=== PATIENT | male | born 1955 | race Caucasian/White ===

== ENCOUNTER 2016-10-11 22:51 | Emergency (ER) | payer BC ==
[2016-10-11 22:19] LABS: INFLUENZA A POS (NEG); INFLUENZA B NEG (NEG)
[~2016-10-11 22:51] MED LIST: ASPIRIN PO; ASPIRINEC PO; COLCHICINE PO; COZAAR100 MG PO; DIOVAN PO; DIOVAN/HCT; JANUMET 50-1,1 UDTAB PO; LEVOTHYROXINE75 MCG PO; LISINOPRIL PO; LODINE XL PO; LOPRESSOR PO; LORTAB 7.5-5001 TAB PO; MEDROL PO; MULTI-VITAMIN1 TAB PO; WELLBUTRIN PO; ZOLOFT100 MG PO; ZYLOPRIM100 MG PO
== END 2016-10-11 23:21 | disposition home or self-care (01) ==
LOC: SED 22:51
PROVIDERS: Emergency Medicine
DX: J10.1 Influenza due to other identified influenza virus with other respiratory manifestations (principal); J98.01 Acute bronchospasm; E11.9 Type 2 diabetes mellitus without complications; F32.9 Major depressive disorder, single episode, unspecified; F17.210 Nicotine dependence, cigarettes, uncomplicated
CPT/HCPCS: 87804; 99283

== ENCOUNTER → 2017-03-12 | Outpatient (CLI) | payer BC ==
--- NOTE | ~2017-03-12 | ST ---
Unit #: [id number] #: [id number] Patient: ELEUTERIO HAM [id number] [address] [address] [id number] MR#: [id number] NAME: ELEUTERIO HAM : 1955 SEX: M STUDY DATE/TIME: 03/13/2017 UNIT: [facility] ROOM: STUDY DESCRIPTION: Comb. stress nuclear and ECG Attending Physician: Ham Chadwick M.D. Referring Physician: Ham Chadwick M.D. Primary Care Physician: William Gregory M.D. CARDIOLOGY REPORT EXAM Stress nuclear and ECG combined. INDICATION Chest pain, hypertension, dyslipidemia, diabetes, tobacco abuse in the past. Further diagnosis of obstructive coronary disease contributing to the patient's chest pain. FINDINGS Patient received technetium 99 Cardiolite 11.66 and 34.2 mCi at rest and stress respectively. ECG showed PVCs, but no significant dysrhythmias. There were no significant ST changes at rest or stress, simply 0.[address] depression. Patient completed 6 minute and 45 seconds of exercise. Heart rate increased from 93 to 142 (88%) and blood pressure increased from 148/85 to 190/86. Perfusion images demonstrate diaphragmatic artifact, LV size upper normal. Diaphragmatic artifact is slightly more prominent with stress than at rest. Summed stress scores is 1. Summed difference scores is 1. Other this, there are no significant defects on either rest or stress imaging. Planar imaging demonstrates no significant patient motion either at rest or stress. There is no significant lung uptake, LV or RV enlargement. Gated wall motion analysis demonstrates end-diastolic volume 135 mL, ejection fraction 53% quantitatively, qualitatively ejection fraction appears to be 45% to 50%. RV is suboptimally seen but appears upper limits of normal, perhaps slightly enlarged. Consider echo correlation. IMPRESSION 1. No ischemia or infarction. 2. LV enlargement. 3. Good exercise capacity. 4. Low normal LV function. 5. Normal stress ECG. Dictated by... Ja Luis M.D. LIU/yovana TD: 03/14/2017 06:57 JOB #: [id number] Unit #: [id number] #: [id number] Patient: ELEUTERIO HAM CARDIOLOGY REPORT Page 1 of 1 X Ja Luis MD CARDIOLOGY REPORT
== END | disposition home or self-care (01) ==
LOC: CNUC 08:12
DX: R07.9 Chest pain, unspecified (principal); I51.7 Cardiomegaly; I50.30 Unspecified diastolic (congestive) heart failure
CPT/HCPCS: 78452; 93017; 93306; A9500